=== PATIENT | female | born 1950 | race Caucasian/White ===

== ENCOUNTER → 2017-09-03 | Outpatient (CLI) | payer OTHER | LOC: FIMAGING 11:29 | PROVIDERS: ATTEND Family Medicine | DX: Z12.31 Encounter for screening mammogram for malignant neoplasm of breast (principal) | CPT/HCPCS: G0202 ==

== ENCOUNTER 2019-02-08 14:24 | Emergency (ER) | payer OTHER ==
[2019-02-08] MEDS ORDERED: NS 500 ML IV ONE (14:50)
--- NOTE | 2019-02-08 14:53 | EDPHY ---
H & P Time Seen by Provider: 02/08/19 14:30 HPI/ROS: HPI Tripped and fell. Forehead laceration. 68-year-old female by ambulance as a limited trauma. This patient was walking with her on a sidewalk. She tripped on a crack in the sidewalk, fell for and struck the left anterior superior aspect of her forehead. She sustained a deep laceration that according to EMS has been bleeding uncontrollably. She is soaking through multiple bandages. She denies loss of consciousness. She is not on anticoagulation. She does take aspirin. No other antiplatelet medication. She is in a cervical collar. She denies any significant extremity pain. No loss of sensation or weakness in her extremities. No other complaints. ROS: Constitutional: No fever, no chills. As above. Eyes: No discharge. No changes in vision. ENT: No sore throat. No nasal congestion or rhinorrhea. Respiratory: No cough. No shortness of breath. Cardiac: No chest pain, no palpitations. Gastrointestinal: No abdominal pain, no vomiting, no diarrhea. Genitourinary: No hematuria. No dysuria or increased frequency with urination. Musculoskeletal: No back pain. As above. Forehead and facial pain. Skin: No rashes. Laceration as above. Neurological: No headache. No focal weakness or altered sensation. Past medical history: Bipolar, hypertension. Social history: No alcohol. She is here with her . Nonsmoker. Physical Exam: General Appearance: Alert, she is very anxious. This patient is responding to questions appropriately and in full sentences. This patient appears well- hydrated and well-nourished. Head: Normocephalic atraumatic except for a 3 cm full-thickness laceration just below the scalp line left anterior upper forehead with pulsatile arterial bleeding. Face: Facial bones are stable on palpation other than noted. Eyes: Pupils equal and round and reactive to light, no pallor or injection. No lid erythema or edema. ENT, Mouth: Mucous membranes moist. Dentition is intact. No malocclusion of the jaw. No tongue lacerations or abrasions. Pharynx is clear. The bilateral nasal canals are clear. No septal hematoma. Respiratory: There are no retractions, lungs are clear to auscultation with good air movement bilaterally. Chest wall is stable to AP and lateral palpation. Cardiovascular: Regular rate and rhythm. No murmur. Gastrointestinal: Abdomen is soft and nontender, no masses, bowel sounds normal. Neurological: Motor sensory function is intact. Cranial nerves are normal. Cerebellar function intact. Skin: Warm and dry, no rashes. No lacerations, abrasions or contusions. Musculoskeletal: Neck is supple and nontender. The trachea is midline. No midline cervical, thoracic, lumbar or sacral tenderness on palpation. No flank tenderness on palpation. She does have some tenderness and swelling over the greater thenar eminence of the left hand. No bony step-off or deformity noted. No significant pain on axial compression of her left thumb. No snuffbox tenderness. Extremities are symmetrical, full range of motion. All joints in the bilateral upper and bilateral lower extremities range without pain or impingement. No tenderness on palpation of the long bones in the bilateral upper and bilateral lower extremities. Psychiatric: No agitation. No depression. Database: EKG: Imaging: CT head without contrast: Negative. CT maxillofacial without contrast: Negative. CT cervical spine without contrast: Negative. All CT studies discussed with staff radiologist Dr. Matti Oliveira. Left hand x-ray series: Negative for fracture, subluxation, dislocation. Interpreted by me. Procedures: Procedure: Laceration repair. Verbal consent was obtained from the patient. The 3.0 cm full-thickness laceration on the left upper forehead with arterial bleed was anesthetized in the usual fashion. The wound was irrigated with normal saline, draped and explored to its base with a gloved finger. This is a full-thickness scalp laceration with copious arterial bleeding. No foreign body was identified. The wound was repaired emergently with 8, 2.0 Vicryl sutures placed through all tissue layers. Excellent hemostasis was achieved. The wound repair was tolerated well and there were no complications. The procedure was performed by myself. The patient understands that this laceration was closed under emergent conditions and is not a cosmetic repair. Emergency department course: Triage vital signs reviewed. She is moderately hypertensive. Vital signs are otherwise normal. Immediately on arrival wound care as above performed. After wound care and achievement of hemostasis, the patient was further examined. She is in a cervical collar, CT imaging of the head, maxillofacial and cervical spine will be obtained. Patient endorses workup. 3:50 p.m., the patient was re-evaluated, resting comfortably at this time. She is alert and oriented. She is responding to questions appropriately. Her cervical collar was clinically and radiographically cleared. Results of CT imaging discussed with her and her . 4:20 p.m., the patient was up and ambulatory without difficulty. She does feel comfortable going home. I explained to her that her forehead laceration repair was not a cosmetic repair but was done emergently to stop bleeding. I discussed the a follow-up appointment with the plastic surgeon for revision should she want this. She otherwise was okay walking around the emergency department. She did not have any significant complaints. She and her feel comfortable going home. Head injury precautions were reviewed with the 2 of them. All of their questions were answered. Follow-up was discussed. The patient was discharged in good condition with her . Differential Diagnosis: The differential diagnosis on this patient includes but is not limited to arterial bleeding from scalp laceration, facial fracture. This represents a partial list of diagnoses considered. These considerations are based on history , physical exam, past history, reassessment and diagnostic testing. Smoking Status: Never smoked Constitutional: Initial Vital Signs Temperature (C) 36.5 C 02/08/19 14:35 Heart Rate 60 02/08/19 14:35 Respiratory Rate 16 02/08/19 14:35 Blood Pressure 161/71 H 02/08/19 14:35 O2 Sat (%) 95 02/08/19 14:35 O2 Delivery Mode Room Air Allergies/Adverse Reactions: prochlorperazine [From Compazine] Allergy (Verified 08/13/16 14:32) prochlorperazine edisylate [From Compazine] Allergy (Verified 08/13/16 14:32) prochlorperazine maleate [From Compazine] Allergy (Verified 08/13/16 14:32) Home Medications: Medication Instructions Recorded Atenolol 25 mg PO BID 08/13/16 Clonazepam 2 mg PO BID 08/13/16 Estradiol Acetate 1 mg PO DAILY 08/13/16 GABAPENTIN 700 mg PO TID 08/13/16 IMITREX 100 mg PO PRN 08/13/16 Liothyronine Sodium 5 mcg DAILY 08/13/16 Lisinopril 20 mg PO DAILY 08/13/16 Vivance 50 mg PO DAILY 08/13/16 Ondansetron [Zofran Odt] PRN 08/14/16 Promethazine HCl 25 mg PO PRN PRN 08/14/16 Acetaminophen/Codeine 300/30Mg 1 each PO Q4-6PRN PRN #14 tab 02/08/19 [Tylenol #3 (*)] Medical Decision Making - Data Points Laboratory Results: Laboratory Results 02/08/19 15:15 02/08/19 15:15 Medications Given: Discontinued Medications Sodium Chloride (Ns) 500 mls @ 0 mls/hr IV ONCE ONE; Wide Open PRN Reason: Protocol Stop: 02/08/19 14:51 Last Admin: 02/08/19 17:39 Dose: Not Given Departure - Departure Disposition: Home, Routine, Self-Care Clinical Impression: Fall from ground level, Forehead laceration, Contusion of left hand Condition: Good Instructions: Care For Your Stitches (ED), Laceration (ED), Head Injury (ED) Additional Instructions: Read and follow provided instructions. Although this sutures placed are absorbable. They will likely take more than 10 days to absorb. Please have them removed in 7 days. Follow-up with your primary care physician on Saturday or Saturday for initial re- evaluation. I have also provided you with a referral to a plastic surgeon you can follow up with if you have concerns about cosmetic outcome regarding your forehead laceration. Ibuprofen dosin mg every 6 hours with meals for the next 3 days only. Take only as needed for pain. Return to the emergency department for worsening neck pain, headache, confusion , nausea and vomiting, bleeding or this years concerns. Referrals: Patient,NotPresent [Unknown] - As per Instructions Perez Kwong JR, MD [Medical Doctor] - As per Instructions Prescriptions: Acetaminophen/Codeine 300/30Mg [Tylenol #3 (*)] 1 each PO Q4-6PRN PRN #14 tab PRN Reason: Pain, Moderate
[2019-02-08 15:38] LABS: PLATELET COUNT 156 10^3/uL (150-400)
[2019-02-08 15:51] LABS: INR 0.96 (0.83-1.16); PROTIME(PATIENT) 12.4 SEC (12.0-15.0)
[2019-02-08 16:21] VITALS: BP 156/75
== END 2019-02-08 17:39 | disposition home or self-care (01) ==
LOC: EDUNIT#
PROC: 0HQ1XZZ Repair Face Skin, External Approach (ICD-10-PCS; principal; 2019-02-08)
DX: S01.81XA Laceration without foreign body of other part of head, initial encounter (principal); S60.222A Contusion of left hand, initial encounter; W01.198A Fall on same level from slipping, tripping and stumbling with subsequent striking against other object, initial encounter; Y93.01 Activity, walking, marching and hiking; Y92.480 Sidewalk as the place of occurrence of the external cause; Y99.9 Unspecified external cause status
CPT/HCPCS: G0480

== ENCOUNTER → 2019-03-20 | Outpatient (CLI) | payer OTHER | LOC: EDSTATUS 13:26 → GIMAGING 13:32 | PROVIDERS: ATTEND Family Medicine | DX: M51.36 Other intervertebral disc degeneration, lumbar region (principal); M25.551 Pain in right hip | CPT/HCPCS: 72100-PO; 73502-PO ==